=== PATIENT | male | born 1975 | race Caucasian/White ===

== ENCOUNTER 2020-10-14 12:21 | Emergency (ER) | payer OTHER ==
[2020-10-14 13:21] LABS: BILIRUBIN NEGATIVE (NEGATIVE); BLOOD NEGATIVE Ery/uL (NEGATIVE); CLARITY CLEAR (CLEAR); COLOR YELLOW (YELLOW); GLUCOSE (U) NORMAL (NORMAL); LEUKOCYTES NEGATIVE Leu/uL (NEGATIVE); NITRITE NEGATIVE (NEGATIVE); PROTEIN NEGATIVE (NEGATIVE); SPECIFIC GRAVITY >=1.030 (1.001-1.030); pH 5.5 (5.0-9.0)
[2020-10-14 13:23] LABS: BASOPHIL 0.3 % (0-2); EOSINOPHIL 0.3 % (0-5); HCT 46.1 % (42.0-52.0); HGB 16.4 g/dl (13.2-18.0); LYMPHOCYTE 27.5 % (15-48); MCH 32.6 pg (25.0-31.0); MCHC 35.6 g/dL (32.0-36.0); MCV 91.7 fL (78.0-100.0); MONOCYTE 14.4 % (0-12); MPV 10.4 fL (6.0-9.5); NEUTROPHIL 56.2 % (41-80); NRBC 0; RBC 5.03 M/uL (4.70-6.00); RDW 12.7 % (11.5-14.0); WBC 3.2 K/uL (4.0-10.5)
[2020-10-14 13:29] LABS: PLT 94 K/uL (150-400)
[2020-10-14 13:34] LABS: ALBUMIN 3.3 g/dL (3.4-5.0); BUN/CREAT RATIO (CALC) 13.8 RATIO; CREATININE 1.3 mg/dL (0.67-1.17); GLOBULIN (CALCULATION) 4.4 g/dL; POTASSIUM 4.4 mmol/L (3.5-5.1); TOTAL PROTEIN 7.7 g/dL (6.4-8.2)
[2020-10-14] MEDS ORDERED: AZITHROMYCIN250 MG PO (17:05)
[2020-10-14] MEDS ORDERED: VENTOLIN HFA IN18 GM INH (17:05)
== END 2020-10-14 18:33 | disposition home or self-care (01) ==
LOC: FER 12:21
PROVIDERS: Internal Medicine; Nurse Practitioner Family
DX: U07.1 COVID-19 (principal); J12.82 Pneumonia due to coronavirus disease 2019; R10.84 Generalized abdominal pain; Z87.19 Personal history of other diseases of the digestive system
CPT/HCPCS: 36415; 71045; 80053; 81003; 82150; 83690; 85025; J2270; J2405; J7030; M0243; Q0244

== ENCOUNTER 2021-04-06 23:05 | Emergency (ER) | payer OTHER ==
[~2021-04-06 23:05] MED LIST: AZITHROMYCIN250 MG PO; VENTOLIN HFA IN18 GM INH
[2021-04-07 00:02] LABS: BASOPHIL 0.3 % (0-2); EOSINOPHIL 2.2 % (0-5); HGB 16.4 g/dl (13.2-18.0); LYMPHOCYTE 28.1 % (15-48); MCH 33.4 pg (25.0-31.0); MCHC 36.4 g/dL (32.0-36.0); MCV 91.6 fL (78.0-100.0); MONOCYTE 6.3 % (0-12); MPV 10.7 fL (6.0-9.5); NEUTROPHIL 62.5 % (41-80); NRBC 0; PLT 148 K/uL (150-400); RBC 4.91 M/uL (4.70-6.00); RDW 12.2 % (11.5-14.0); WBC 7.8 K/uL (4.0-10.5)
[2021-04-07 00:05] LABS: BUN/CREAT RATIO (CALC) 10.9 RATIO; CREATININE 1.1 mg/dL (0.67-1.17); POTASSIUM 3.7 mmol/L (3.5-5.1)
[2021-04-07 00:25] LABS: CORONAVIRUS 2019 SARS-COV-2 NEGATIVE (NEGATIVE); INFLUENZA A NAA NEGATIVE (NEGATIVE)
== END 2021-04-07 03:10 | disposition home or self-care (01) ==
LOC: FER 23:05
PROVIDERS: Internal Medicine
DX: J06.9 Acute upper respiratory infection, unspecified (principal); R59.0 Localized enlarged lymph nodes; Z20.822 Contact with and (suspected) exposure to COVID-19
CPT/HCPCS: 36415; 70450; 70486; 80048; 84145; 85025; J1100; U0002

== ENCOUNTER 2021-09-24 11:09 | Emergency (ER) | payer OTHER ==
[2021-09-24] MEDS ORDERED: NAPROXEN500 MG PO (12:26)
== END 2021-09-24 12:34 | disposition home or self-care (01) ==
LOC: FER 11:09
DX: S40.012A Contusion of left shoulder, initial encounter (principal); W10.9XXA Fall (on) (from) unspecified stairs and steps, initial encounter; Y92.89 Other specified places as the place of occurrence of the external cause; Y99.0 Civilian activity done for income or pay; Z28.310 Unvaccinated for COVID-19
CPT/HCPCS: 73030; 73060